=== PATIENT | female | born 1990 | race Caucasian/White ===

== ENCOUNTER 2018-08-03 13:40 | Observation (INO) ==
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
[2018-08-03 14:34] LABS: Hematocrit 37.9 % (37.0-47.0); Hemoglobin 12.6 gm/dL (12.5-16.0); Mean Cell Volume 89.8 fl (78-100); Mean Corpuscular Hemoglobin 29.9 pg (27-31); Mean Corpuscular Hgb Conc 33.2 g/dl (32-36); Mean Platelet Volume 10.8 fl (8-12.5); Neutrophil # 8.8 K/mm3 (1.3-6.0); Neutrophil % 70.6 % (42-75.0); Platelet Count 266 K/mm3 (150-450); Red Blood Count 4.22 M/mm3 (4.2-5.4); Red Cell Distribution Width 12.9 % (11.5-14.0); White Blood Count 12.5 K/mm3 (4.0-10.5)
[2018-08-03 14:48] LABS: Albumin * 3.6 gm/dl (3.4-5.0); Anion Gap 18.6 mmol/L (6.8-13.8); BUN/Creatinine Ratio 12.9 (9.0-21.6); Bilirubin, Total 0.3 mg/dL (0.0-1.1); Carbon Dioxide 21.3 mmol/L (24-32.6); Potassium 3.9 mmol/L (3.4-4.6); Total Protein 6.9 gm/dL (6.2-8.2)
[2018-08-03 16:41] LABS: Cocaine Ur Negative (NEGATIVE); Urine Barbiturate Negative (NEGATIVE); Urine Benzodiazepines Negative (NEGATIVE); Urine Opiates Negative (NEGATIVE); Urine PCP Negative (NEGATIVE); Urine THC Negative (NEGATIVE)
[2018-08-03] MEDS ORDERED: ACETAMINOPHEN 325 MG TABLET PO ONE (17:05)
[2018-08-04] MEDS: ACETAMINOPHEN 500 MG TABLET PO PRN ×2 (01:59→08:47)
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
[2018-08-04 11:06] VITALS: BP 114/75
== END 2018-08-04 11:15 | disposition home or self-care (01) ==
LOC: ER 13:40 → MS 13:40
PROVIDERS: ADMIT Surgery; ATTEND Surgery
CPT/HCPCS: 36415; 70450; 71260; 72125; 80053; 80307; 80320; 84703; 85025; 93005; 99285; G0378; G0481; Q9967